=== PATIENT | female | born 1985 ===

== ENCOUNTER 2016-09-08 10:31 | Emergency (ER) | payer OTHER ==
[2016-09-08 10:31] VITALS: BMI 31.6
[2016-09-08 10:39] VITALS: TEMP 98.4
[2016-09-08] MEDS ORDERED: Sodium Chloride 0.9% 1,000 ML IV STA (11:21)
--- NOTE | 2016-09-08 11:25 | ED PDOC ---
HPI: Chest Pain Time Seen by Provider: 09/08/16 10:54 Chief Complaint (Nursing): Chest Pain Chief Complaint (Provider): Central chest pain, intermittent over the last 2 ays History Per: Patient History/Exam Limitations: no limitations Onset/Duration Of Symptoms: Days Current Symptoms Are (Timing): Still Present Quality: "Pain", Other (Pt states there is a constant dull pain and approx 5 times a day she gets a sharp "punching like pain which is associated with SOB) Associated Symptoms: Dyspnea. denies: Nausea, Diaphoresis Additional Complaint(s): Pt denies similar in the past. Pt is taking OCP. States she had not traveled recently. Past Medical History Reviewed: Historical Data, Nursing Documentation, Vital Signs Vital Signs: Last Vital Signs Temp 98.4 F 09/08/16 10:38 Pulse 74 09/08/16 10:57 Resp 19 09/08/16 10:38 BP 139/81 09/08/16 10:57 Pulse Ox 100 09/08/16 11:27 - Medical History PMH: HTN Denies: Kidney Stones, Chronic Kidney Disease Other PMH: Taking OCP - Surgical History Surgical History: Cholecystectomy - Family History Family History: States: Unknown Family Hx - Home Medications Home Medications: Ambulatory Orders Medication Instructions Recorded Lisinopril [Zestril] 10 mg PO DAILY 08/02/15 oxyCODONE/Acetaminophen [Percocet 1 tab PO Q6 PRN 03/12/16 5/325 mg Tab] - Allergies Allergies/Adverse Reactions: Allergies Allergy/AdvReac Type Severity Reaction Status Date / Time peanut Allergy RASH Verified 08/02/15 06:34 soy Allergy ITCHING Verified 03/12/16 08:42 mushroom Allergy RASH Uncoded 03/15/14 15:30 Review of Systems ROS Statement: Except As Marked, All Systems Reviewed And Found Negative Cardiovascular: Positive for: Chest Pain Respiratory: Positive for: Shortness of Breath Physical Exam - Reviewed Nursing Documentation Reviewed: Yes Vital Signs Reviewed: Yes - Physical Exam Appears: Positive for: Well, Non-toxic, No Acute Distress Head Exam: Positive for: ATRAUMATIC, NORMAL INSPECTION, NORMOCEPHALIC Skin: Positive for: Normal Color, Warm, DRY Eye Exam: Positive for: Normal appearance ENT: Positive for: Normal ENT Inspection Neck: Positive for: Normal, Painless ROM Cardiovascular/Chest: Positive for: Regular Rate, Rhythm. Negative for: Chest Non Tender ((+) midsternal tenderness and left ) Respiratory: Positive for: CNT, Normal Breath Sounds Gastrointestinal/Abdominal: Positive for: Normal Exam, Bowel Sounds, Soft Back: Positive for: Normal Inspection Extremity: Positive for: Normal ROM Neurologic/Psych: Positive for: Alert, Oriented - Laboratory Results Result Diagrams: 09/08/16 11:00 09/08/16 11:00 - ECG O2 Sat by Pulse Oximetry: 100 Disposition - Clinical Impression Clinical Impression: Chest pain - Patient ED Disposition Is Patient to be Admitted: No Counseled Patient/Family Regarding: Diagnosis, Need For Followup - Disposition Referrals: [facility] [Outside] Disposition: Routine/Home Disposition Time: 16:34 Condition: GOOD Additional Instructions: Motrin for pain. Follow-up at the clinic. Instructions: Chest Pain (ED)
[2016-09-08 12:23] LABS: BASO % 0.6 % (0.0-2.0); EOS # 0.1 K/uL (0.0-0.7); HEMATOCRIT 41.8 % (34.0-47.0); LYMPH # 1.9 K/uL (1.0-4.3); LYMPH % 27.3 % (20.0-40.0); MEAN CELL VOLUME 86.5 fl (81.0-99.0); MEAN CORPUSCULAR HEMOGLOBIN 29.6 pg (27.0-31.0); MEAN CORPUSCULAR HGB CONC 34.2 g/dL (33.0-37.0); MEAN PLATELET VOLUME 8.4 fl (7.2-11.7); MONO # 0.5 K/uL (0.0-0.8); MONO % 7.4 % (0.0-10.0); NEUT # 4.3 K/uL (1.8-7.0); NEUT % 63.7 % (50.0-75.0); RED CELL DISTRIBUTION WIDTH 12.9 % (11.5-14.5); WHITE BLOOD COUNT 6.8 K/uL (4.8-10.8)
[2016-09-08 12:26] LABS: ALKALINE PHOSPHATASE 44 U/L (38-126); ALT/SGPT 200 U/L (9-52); AST/SGOT 205 U/L (14-36); BLOOD UREA NITROGEN 10 mg/dl (7-17); CALCIUM 9.1 mg/dL (8.4-10.2); CARBON DIOXIDE 21 mmol/L (22-30); CHLORIDE 105 mmol/L (98-107); GFR AFRICAN-AMERICAN > 60; GLUCOSE,RANDOM 90 mg/dL (65-105); SODIUM 141 mmol/l (132-148); TOTAL PROTEIN 8.7 G/DL (6.3-8.2)
[2016-09-08 12:38] LABS: POTASSIUM 4.9 MMOL/L (3.6-5.0)
[2016-09-08] MEDS ORDERED: Sodium Chloride 0.9% 100 ML ONE (14:28)
[2016-09-08] MEDS ORDERED: Iodixanol 320 MG/ML 100 ML BOTTLE IV ONE (14:28)
--- NOTE | 2016-09-08 15:24 | CT ---
PROCEDURE: CT Chest with contrast (Pulmonary Angiogram) HISTORY: chest pain, taking OCP COMPARISON: None available. TECHNIQUE: Axial computed tomography images were obtained of the chest in the pulmonary arterial phase of enhancement. Coronal and sagittal reformatted images were created and reviewed. Intravenous contrast dose: 95 cc of Visipaque 320 Radiation dose: Total exam DLP = 398.3 mGy-cm. FINDINGS: PULMONARY ARTERIES: Suboptimal opacification of the peripheral small pulmonary arteries. . Evidence of central pulmonary embolism. AORTA: No acute findings. No thoracic aortic aneurysm. LUNGS: Unremarkable. No nodule, mass or pulmonary consolidation. PLEURAL SPACES: Unremarkable. No effusion or pneuomothorax. HEART: Unremarkable. No cardiomegaly. No significant pericardial effusionThe heart is small upper normal/ mildly enlarged. No evidence of pericardial effusion. . LYMPH NODES: No lymphadenopathy. BONES, CHEST WALL: Unremarkable. No fracture or destructive lesion OTHER FINDINGS: Unremarkable. IMPRESSION: Suboptimal study. No evidence of central pulmonary embolus. No evidence of acute pulmonary disease. The heart is upper normal limit in size.
--- NOTE | 2016-09-08 16:03 | RAD ---
HISTORY: mid-sternal chest pain COMPARISON: Comparison is made to 03/17/2012 TECHNIQUE: Chest PA and lateral FINDINGS: LUNGS: No active pulmonary disease. PLEURA: No significant pleural effusion identified. No pneumothorax apparent. CARDIOVASCULAR: Normal. OSSEOUS STRUCTURES: No significant abnormalities. VISUALIZED UPPER ABDOMEN: Normal. OTHER FINDINGS: None. IMPRESSION: No active disease.
[2016-09-08 17:03] VITALS: BP 129/76; PULSE 75; RESP 16; O2SAT 99
== END 2016-09-08 17:06 | disposition home or self-care (01) ==
LOC: H.ER 10:31
DX: R07.9 Chest pain, unspecified (principal); R06.02 Shortness of breath; I10 Essential (primary) hypertension

== ENCOUNTER 2017-06-17 12:28 | Emergency (ER) | payer BC ==
[2017-06-17 12:29] VITALS: BMI 31.6
[2017-06-17 12:39] VITALS: TEMP 98; O2SAT 100
--- NOTE | 2017-06-17 13:55 | ED PDOC ---
HPI: Hypertension/Hypotension Time Seen by Provider: 06/17/17 13:20 Chief Complaint (Nursing): High Blood Pressure Chief Complaint (Provider): High Blood Pressure, Dizziness History Per: Patient History/Exam Limitations: no limitations Onset/Duration Of Symptoms: Hrs Current Symptoms Are (Timing): Still Present Associated Symptoms: Dizziness. denies: Chest Pain, Dyspnea, Blurred Vision, Focal Weakness, Headache Quality Of Symptoms: Other (mild chest tightness ) Severity: Mild Additional Complaint(s): This is 32 y/o female with PMH of HTN, Rheumatoid arthritis and fatty liver sent to the ED by PCP due to one day history of high blood pressure, dizziness and mild nose bleed. As per patient, she woke up this morning feeling dizzy, reported home BP 145/115 and patient took her Lisinopril 10mg. At work, patient continues feeling dizzy with mild nose bleed (which is not something new for her ) and comes to the clinic. At Clinic, patient's blood pressure was 160/105 with mild dizziness and sent to the ED for further evaluation. Patient admits feeling mild dizzy and nauseated but denies any blurred vision, headache, dyspnea or edema. Patient reports mild chest tightness which is not something new as per patient. PMH: NHC PMH: HTN, Rheumatoid arthritis and fatty liver PSH: right ovarian cyst removal, gallbladder Allg: NKDA Med: Lisinopril 10mg daily FH: HTN- dad, Mom: Lupus, RA, COPD SH: Social alcohol use, denies smoking or illicit drug use Past Medical History Vital Signs: Last Vital Signs Temp 98 F 06/17/17 12:37 Pulse 75 06/17/17 12:37 Resp 16 06/17/17 12:37 BP 158/106 H 06/17/17 12:37 Pulse Ox 100 06/17/17 12:37 - Medical History PMH: HTN Denies: Kidney Stones, Chronic Kidney Disease Other PMH: HTN, RA, fatty liver - Surgical History Surgical History: Cholecystectomy Other surgeries: Ovarian cyst - Family History Family History: States: Unknown Family Hx - Living Arrangements Living Arrangements: With Family - Social History Current smoker - smoking cessation education provided: No Ex-Smoker (has not smoked in the last 12 months): No Alcohol: Occasional Drugs: Denies - Home Medications Home Medications: Ambulatory Orders Medication Instructions Recorded Lisinopril [Zestril] 10 mg PO DAILY 08/02/15 oxyCODONE/Acetaminophen [Percocet 1 tab PO Q6 PRN 03/12/16 5/325 mg Tab] - Allergies Allergies/Adverse Reactions: Allergies Allergy/AdvReac Type Severity Reaction Status Date / Time peanut Allergy RASH Verified 08/02/15 06:34 soy Allergy ITCHING Verified 03/12/16 08:42 mushroom Allergy RASH Uncoded 03/15/14 15:30 Review of Systems Constitutional: Negative for: Fever, Weakness Eyes: Negative for: Vision Change ENT: Negative for: Ear Pain, Nose Pain, Mouth Pain Cardiovascular: Positive for: Light Headedness, Other (mild chest tightness). Negative for: Palpitations, Orthopnea, Paroxysmal Noc. Dyspnea, Edema Respiratory: Negative for: Cough, Shortness of Breath, Hemoptysis Gastrointestinal: Positive for: Nausea. Negative for: Vomiting, Abdominal Pain , Diarrhea Musculoskeletal: Negative for: Neck Pain, Shoulder Pain, Arm Pain Skin: Negative for: Rash Neurological: Negative for: Weakness, Numbness, Change in Speech Physical Exam - Physical Exam Appears: Positive for: No Acute Distress Head Exam: Positive for: ATRAUMATIC, NORMAL INSPECTION, NORMOCEPHALIC Skin: Positive for: Normal Color, Warm Eye Exam: Positive for: Normal appearance, EOMI ENT: Positive for: Normal ENT Inspection Neck: Positive for: Normal, Painless ROM Cardiovascular/Chest: Positive for: Regular Rate, Rhythm, Chest Non Tender. Negative for: Edema, Gallop Respiratory: Positive for: Normal Breath Sounds. Negative for: Accessory Muscle Use, Crackles, Rales, Rhonchi Gastrointestinal/Abdominal: Positive for: Normal Exam, Bowel Sounds, Soft. Negative for: Tenderness Back: Positive for: Normal Inspection Extremity: Positive for: Normal ROM. 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 Ivan 15:15- EKG, CBC, CMP and CT, Troponin reviewed with patient, wnl Re-evaluation Time: 15:25 Condition: Improved Medical Decision Making Medical Decision Making: Differentials includes: dizziness due to high blood pressure Disposition - Clinical Impression Clinical Impression: Abnormal blood pressure - Patient ED Disposition Is Patient to be Admitted: No - Disposition Disposition: Routine/Home Disposition Time: 15:40 Condition: STABLE Additional Instructions: Please follow up with clinic Continue BP medications ER precautions discussed with patient Forms: [phone] ([place])
[2017-06-17 14:09] LABS: BASO # 0.1 K/uL (0.0-0.2); BASO % 0.9 % (0.0-2.0); EOS # 0.1 K/uL (0.0-0.7); EOS % 1.1 % (0.0-4.0); HEMOGLOBIN 14.5 g/dL (12.0-16.0); LYMPH % 28.2 % (20.0-40.0); MEAN CELL VOLUME 86.2 fl (81.0-99.0); MEAN CORPUSCULAR HEMOGLOBIN 29.2 pg (27.0-31.0); MEAN CORPUSCULAR HGB CONC 33.8 g/dL (33.0-37.0); MONO # 0.5 K/uL (0.0-0.8); MONO % 6.3 % (0.0-10.0); NEUT # 4.6 K/uL (1.8-7.0); NEUT % 63.5 % (50.0-75.0); NRBC % 0.1 % (0.0-0.0); RBC 4.95 Mil/uL (3.80-5.20); WHITE BLOOD COUNT 7.2 K/uL (4.8-10.8)
[2017-06-17 14:20] LABS: ALBUMIN 4.5 g/dL (3.5-5.0); ALT/SGPT 128 U/L (9-52); AST/SGOT 77 U/L (14-36); BLOOD UREA NITROGEN 9 mg/dl (7-17); CALCIUM 9.1 mg/dL (8.4-10.2); GFR AFRICAN-AMERICAN > 60; GFR NON-AFRICAN AMERICAN > 60
[2017-06-17 14:24] LABS: ALB/GLOB RATIO 1.1 (1.0-2.1)
[2017-06-17 14:24] LABS: VENOUS BLOOD GAS BASE EXCESS -0.4 mmol/L (0.0-2.0); VENOUS BLOOD GAS PCO2 45 mmHg (40-60); VENOUS BLOOD GAS PO2 35 mm/Hg (30-55); VENOUS BLOOD PH 7.36 (7.32-7.43)
--- NOTE | 2017-06-17 15:34 | CT ---
PROCEDURE: CT HEAD WITHOUT CONTRAST. HISTORY: kraft COMPARISON: None available. TECHNIQUE: Axial computed tomography images were obtained through the head/brain without intravenous contrast. Radiation dose: Total exam DLP = 884.50 mGy-cm. This CT exam was performed using one or more of the following dose reduction techniques: Automated exposure control, adjustment of the mA and/or kV according to patient size, and/or use of iterative reconstruction technique. FINDINGS: HEMORRHAGE: No intracranial hemorrhage. BRAIN: No mass effect or edema. No atrophy or chronic microvascular ischemic changes. VENTRICLES: No hydrocephalus. CALVARIUM: Unremarkable. PARANASAL SINUSES: Unremarkable as visualized. No significant inflammatory changes. MASTOID AIR CELLS: Unremarkable as visualized. No inflammatory changes. OTHER FINDINGS: None. IMPRESSION: No acute intracranial pathology identified.
[2017-06-17 16:47] VITALS: BP 154/92; PULSE 70; RESP 18
--- NOTE | 2017-06-18 12:08 | CARD ---
APPROVED REPORT EKG Measurement Heart [id number] MD [id number] <Conclusion> Normal sinus rhythm Normal ECG
== END 2017-06-17 16:42 | disposition home or self-care (01) ==
LOC: H.ER 12:28
DX: I10 Essential (primary) hypertension (principal); M06.9 Rheumatoid arthritis, unspecified; N83.209 Unspecified ovarian cyst, unspecified side